=== PATIENT | male | born 1970 | race Caucasian/White ===

== ENCOUNTER 2017-10-09 17:22 | Emergency (ER) | payer MEDICAID, SELFPAY ==
[2017-10-09 17:22] VITALS: BP 154/100; PULSE 100; RESP 16; TEMP 36.6; O2SAT 100; BMI 31.3
--- NOTE | 2017-10-09 17:38 | EKG12_ITS ---
Test Reason : [facility] [place] Pressure : / mmHG Vent. Rate : 075 BPM Atrial Rate : 075 BPM P-R Int : 144 ms QRS Dur : 098 ms QT Int : 362 ms P-R-T Axes : 057 079 062 degrees QTc Int : 404 ms Normal sinus rhythm with sinus arrhythmia Normal ECG Confirmed by NELL MOSLEY, QUEENIE ([id number]), web editor CIERRA WU ([id number] on 10/11/2017 10:48:25 AM Referred By: Confirmed By:QUEENIE CAMEJO MD
[2017-10-09 17:47] LABS: Absolute Lymphocyte Count 1.49 X10^3/ul (0.83-4.51); Absolute Neutrophil Count 5.9 X10^3/uL (2.0-7.7); Basophil# 0.03 X10^3/uL; Basophil% 0.4 % (0-1); Eosinophil# 0.15 X10^3/uL; Eosinophils% 1.8 % (0-5); Hematocrit 42.8 % (40-54); Hemoglobin 14.1 g/dl (13.0-16.5); Lymphocyte # 1.49 X10^3/ul (4.0); Lymphocyte % 18.3 % (19-41); Mean Corp Hgb Conc 32.9 g/gl (32-36); Mean Corpuscular Hgb 31.8 pg (27.0-32.0); Mean Corpuscular Volume 96.6 fL (80-94); Mean Platelet Vol. 10.3 fl (6.2-12.0); Monocyte# 0.58 X10^3/uL; Monocyte% 7.1 % (0-10); Neutrophil # 5.86 X10^3/uL (2.7-7.7); Neutrophil % 72.2 % (47-70); Platelet Count 224 K/mm3 (150-450); RBC Distribution Width CV 13.6 % (11.6-14.6); RBC Distribution Width SD 48.4 fl (35.1-43.9); Red Blood Count 4.43 M/mm3 (4.6-6.2); White Blood Count 8.1 K/mm3 (4.4-11.0)
[2017-10-09 17:48] LABS: POSITIVE COUNT NO; POSITIVE DIFFERENTIAL NO; POSITIVE MORPHOLOGY NO
[2017-10-09 18:01] LABS: Bacteria 0 SEEN /hpf (None Seen); Mucous, Urine 0 SEEN /hpf (<or=2+); Red Blood Cells-Urine 0 SEEN /hpf (0-5); Squamous Epithelial Cells - UA 0 SEEN /hpf (0-5); White Blood Cells 0 SEEN /hpf (0-5)
[2017-10-09 18:04] LABS: Color, Urine Yellow (Yellow); Glucose, Dipstick Normal (Normal); Ketone-Dipstick Negative (Negative); Leukocyte Esterase-Dipstick 25 /ul (Negative); Nitrite-Dipstick Negative (Negative); Occult Blood-Urine Negative /ul (Negative); Protein-Dipstick Negative (Negative); Urine Bilirubin Dipstick Negative (Negative); Urine Clarity Clear (Clear); Urine Urobilinogen Normal (Normal); Urine pH 6.5 (5.0 - 8.0)
[2017-10-09 18:08] LABS: Alcohol, Blood (Medical)-Serum < 3.0 mg/dL
[2017-10-09 18:16] LABS: AST(SGOT) 22 U/L (15-37); Alanine Aminotransfer ALT/SGPT 49 U/L (16-61); Albumin, Serum 4.3 g/dL (3.2-5.0); Alkaline Phosphatase 100 U/L (45-117); Anion Gap 7 (5-15); BUN 12 mg/dL (7-18); BUN/Creat Ratio 12.5 RATIO (10-20); Bilirubin, Direct 0.13 mg/dL (0.00-0.30); Calcium,Total 9.2 mg/dL (8.5-10.1); Chloride 105 mmol/L (98-107); Creatinine, Serum 0.96 mg/dL (0.70-1.30); EST Glomerular Filtration Rate 90 mL/min (>60); Est Glom Filt Rate - Afr Amer 109 mL/min (>60); Estimated Creatinine Clearance 90.85 ml/min; Globulin 3.5 g/dL (2.2-4.2); Glucose 100 mg/dL (70-110); Potassium 4.1 mmol/L (3.5-5.1); Protein, Total 7.8 g/dL (6.4-8.2); Sodium Level 141 mmol/L (136-145)
[2017-10-09 18:27] LABS: Amphetamine Urine VISTA NEGATIVE (<1000 ng/mL); Barbiturate Urine VISTA NEGATIVE (< 200 ng/mL); Benzodiazepine Urine VISTA NEGATIVE (< 200 ng/mL); Cocaine Urine VISTA NEGATIVE (< 300 ng/mL); Ecstacy Urine VISTA NEGATIVE (< 500 ng/mL); Methadone Urine VISTA NEGATIVE (< 300 ng/mL); PCP Urine VISTA NEGATIVE (< 25 ng/mL); THC Urine VISTA NEGATIVE (< 50 ng/mL); Vista UDS pH Range 6
--- NOTE | 2017-10-09 18:59 | ED.RN ---
BELONGINGS: 2 ANN RUIZ RINGS, AVINASH SILVER NECKLACE, SWEATPANTS, SWEATSHIRT, SOCKS, SLIPPERS. PT CURRENTLY HAS CELL PHONE AND GLASSES AT BEDSIDE.
--- NOTE | 2017-10-09 19:01 | ED.RN ---
RT ARM LACERATIONS FROM RAZOR BLADES.
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
[2017-10-09 20:00] VITALS: RESP 18
[2017-10-09 21:59] VITALS: RESP 18
[2017-10-09 22:39] VITALS: BP 125/83; RESP 18
--- NOTE | 2017-10-09 22:39 | ED.DEP ---
ED Disposition - Plan for ED Patient: Chief Complaint: Suicidal Instructions: ED Depression Referrals: Care Physician,No Primary [Primary Care Provider] - Counseling,Center [GROUP OF PHYSICIANS] -
[2017-10-09 22:49] VITALS: BP 137/88; PULSE 87; RESP 16; O2SAT 99
== END 2017-10-09 22:52 | disposition home or self-care (01) ==
PROVIDERS: Emergency Provider Emergency Medicine
DX: R45.851 Suicidal ideations (principal); F41.9 Anxiety disorder, unspecified; F32.9 Major depressive disorder, single episode, unspecified; S60.811A Abrasion of right wrist, initial encounter; Z72.0 Tobacco use; Z79.899 Other long term (current) drug therapy; X78.9XXA Intentional self-harm by unspecified sharp object, initial encounter; Y93.89 Activity, other specified; Y92.89 Other specified places as the place of occurrence of the external cause; Y99.8 Other external cause status
CPT/HCPCS: 80048; 80076; 80307; 80320; 81001; 85025; 93005; 99283; G0480

== ENCOUNTER 2018-01-11 09:00 | Outpatient (RCR) | payer MEDICAID, SELFPAY ==
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
--- NOTE | 2018-01-11 12:41 | BH.COMM ---
Communication Note - Communication with Client Communication Note: Met with patient to update previous intake assessment which was completed on 11/15/17 and to complete admission paperwork for IOP. Was discharged from [facility] yesterday. Met with outpatient therapist this AM. Denies active suicidal ideations, plan, or intent. Contracts for safety. Reports that distress is related mainly to anxiety, however is motivated to start IOP program. Refer to intake for more information.
--- NOTE | 2018-01-11 12:45 | BH.COMM_ITS ---
Communication Note - Communication with Client Communication Note: Met with patient to update previous intake assessment which was completed on 11/15/17 and to complete admission paperwork for IOP. Was discharged from [facility] yesterday. Met with outpatient therapist this AM. Denies active suicidal ideations, plan, or intent. Contracts for safety. Reports that distress is related mainly to anxiety, however is motivated to start IOP program. Refer to intake for more information.
--- NOTE | 2018-01-11 12:45 | BH.COMM ---
Communication Note - Communication with Client Communication Note: Pt left 2nd group early due to anxiety. States that he was not able to fill his prescriptions for anxiety medications after discharge from hospital yesterday or this AM and feels his anxiety is increasing. Requested to leave IOP early. Denies any overwhelming depressive symptoms and reports that he plans on returning tomorrow.
--- NOTE | 2018-01-11 13:44 | BH.SGPN ---
Service Group Progress Note - Session Psychotherapy Session #2 Date Open:: 01/11/18 - 6 group members Time Started:: 10:18 Time Stopped:: 11:08 Targeted Problem #:: 1 Type of Group:: Illness Management Goal of Group:: To increase understanding of pitfalls and impact can have on mental health. Client Response/Progress/Benefit:: Client responded well to session, first day at IOP. Client appeared to connect with the quote sharing, sometimes the right path means cutting out people from your life. Client discussed the definition of pitfalls with the group and identified pitfalls as hardships, unexpected challenges, and difficulties. Client stated anxiety, PTSD, and negative thinking can make one vulnerable to pitfalls. Client shared pitfalls can negatively impact mental health by increasing self-doubt, depression, and negative thinking. Client appeared to benefit from increasing awareness of the impact pitfalls can have on mental health. Client left in a hurry, due to medication needs. Client to continue IOP to prevent decompensation. Eye Contact:: Good Motor Activity:: Restless Appearance:: Casual Speech:: Appropriate Mood:: Anxious, Dysthymic Affect:: Flat Thoughts:: Linear, No evidence of hallucinations/delusions noted Staff Interventions:: Therapist facilitated discussion about pitfalls and assisted group in identifying common pitfalls that can set you back. Therapist led group in an activity to help group understand impact pitfalls can have on oneself and identify strategies that could help you get back on the right path. Therapist provided support by using active listening and providing feedback.
--- NOTE | 2018-01-13 09:43 | BH.SGPN_ITS ---
Service Group Progress Note - Session Psychotherapy Session #1 Date Open:: 01/12/18 Time Started:: 09:10 Time Stopped:: 10:00 Type of Group:: Process - 6 group members Goal of Group:: The goal of today's group was to check-in with client's mood, stressors, and positives, and review homework. Client Response/Progress/Benefit:: Pt was an active participant in group discussion. Provided appropriate feedback to peers. Emotions for today is anxious. Apologized to the group for leaving IOP early yesterday due to anxiety/panic. Shared that he has been overwhelmed with anxiety and depressive symptoms which resulted in a suicide attempt and ultimately placement in psychiatric unit. Discussed his admission and the events that led to his admission. Group was supportive. Benefited from group support. Limited progress as this is pt's second day in IOP. Will continue in IOP to maintain safety, stabilize mood, and prevent further decompensation. Eye Contact:: Intense Motor Activity:: Restless Appearance:: Casual Speech:: Appropriate Mood:: Anxious, Irritable, Depressed Affect:: Congruent Thoughts:: Linear, Logical, No evidence of hallucinations/delusions noted Staff Interventions:: Therapist used open-ended questions to elicit information about client's current stressors and mood state. Therapist was supportive by using active listening and reflection. Psychotherapy Session #2 Date Open:: 01/12/18 Time Started:: 10:20 Time Stopped:: 11:10 Type of Group:: Process - 6 group members Goal of Group:: To increase understanding and awareness of emotions connected to change and the impact those emotions can have on change. Client Response/Progress/Benefit:: Pt was an active participant in group activity and dicussion. Along with others in the group pt participated in discussion on change and the emotions associated with change. Pt stated I don' t like like change ... I like to avoid it. Reported common emotions for him related to change which involve fear, anger, and anxiety. Benefited from group to increase awareness that the emotions that he experiences are common to change. Also benefited on reframing of change as negative to positive. Eye Contact:: Fair Motor Activity:: Restless Appearance:: Casual Speech:: Appropriate Mood:: Anxious, Depressed Affect:: Congruent Thoughts:: Linear, Logical, No evidence of hallucinations/delusions noted Staff Interventions:: Therapist facilitated group discussion about change. Therapist led the group in an activity in which the activity was utilized as a tool to increase client?s awareness of emotions connected with change. Therapist led the processing of how each emotion was associated with change. Therapist also educated clients on the stages of change and discussed emotions associated with each stage. Therapist was supportive by providing feedback and using reflective listening.
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
--- NOTE | 2018-01-13 10:00 | BH.NET ---
Nursing Education/Training - Session Information Type of Session: Individual Medical Management:: Client's R wrist wound examined: appears edematous around the incision site with significant errythema and some minor purulent drainage. The stitches have been removed. The ends of the wound are well-approximated, but the middle is poorly approximated and deep. Client did see a physician in a urgent care the day before and he was given 2 antibiotics. There are no systemic symptoms, no obvious cellulits, no tracts of redness or edema, and he is afebrile. Client provided with several packs of steri-strips and advised to clean the wound only with gentle soap and luke-warm water, to avoid lifting with the affected limb, to keep steri-strips to the center, and to seek emergency medical attention if systemic symptoms develop, drainage increases, there is significant bleeding, or redness increases. Client verbalizes understanding.
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
--- NOTE | 2018-01-13 14:39 | BH.DR.ITP ---
Initial Treatment Plan - Patient Information Visit Information: ADMISSION DATE: EXPECTED LOS: 4-6 weeks Diagnoses:: Major depressive disorder recurrent severe F 33.2 - Problems/Symptoms Problem #1:: Depression. Sad mood, anhedonia, recent suicide attempt Problem #2:: Anxiety Symptom:: Minasian, panic, intrusive traumatic thoughts, hypervigilance, nightmares, obsessive-compulsive traits Problem #3:: Substance use
--- NOTE | 2018-01-13 15:22 | BH.MDN_ITS ---
Multi-Disciplinary Note - Note 30-min Individual Time Started:: 11:30 Date: 01/13/18 Purpose of session/treatment goals addressed:: Purpose of today's session was to gather additional information from the client about functioning and symptoms. Other topics including developing treatment goals and his progress in the program Eye Contact:: Fair Motor Activity:: Restless Appearance:: Casual Speech:: Appropriate Mood:: Anxious, Irritable Affect:: Congruent Thoughts:: Linear, Logical, No evidence of hallucinations/delusions noted Staff Interventions:: therapist used open ended questions to gather client's symptoms, current stressors, as well as hx of mental health treatment. Worked with client to explore treatment goals to address in IOP Client Response:: Client reports that he is begining to feel more comfortable in the group setting. Reports less anxiety from first day where he had to leave early due to panic. He discussed at length his conflicted relationship with his father and his son. During recent inpatient hospitalization he had intense conversations with his son and father. Hopeful that those relationships will improve. Significant regret for his actions while addicted to substances for 20 years and how it effected those close to him. Pt reports that he would like to work on managing his depressive, anxiety, and irritability more effectively. States the he need to learn how to cope with life better. Currently is on parole for 3 years after his release from penitentiary. Had a PV 4 months ago related to consuming alcohol. Pt adamantly denies dependence on alcohol. Reports that an alcohol monitor will be placed on him next week. Risks/Concerns:: No risks or concerns noted. Pt denies any active suicidal ideations, plan, or intent. Contracts for safety. Progress Toward Goals/Plan:: Progress noted since starting IOP as he reports decreased anxiety, fear, and depression. Pt also reports increased support from group program and decreased anxiety as due to resolution of legal issues and job status. Plan is to continue in IOP to maintain safety, prevent decompensation, and decrease depressive symptoms. Time Stopped:: 12:05
--- NOTE | 2018-01-18 13:55 | BH.MDN ---
Multi-Disciplinary Note - Note 30-min Individual Time Started:: 09:35 Date: 01/18/18 Purpose of session/treatment goals addressed:: The purpose of this session was to begin building rapport with Client as well as gather additional information regarding current symptoms, stressors, and means for coping. Another purpose was to identify healthy supports and complete treatment goal planning. Eye Contact:: Good Motor Activity:: Appropriate Appearance:: Casual Speech:: Appropriate Mood:: Anxious, Irritable Affect:: Congruent Thoughts:: Linear, Logical, No evidence of hallucinations/delusions noted Staff Interventions:: Therapist asked open-ended and clarifying questions to gather information regarding client current symptoms, stressors, identified supports, and current means for coping. Used reflective listening and empathic responses as Client discussed current psychosocial stressors and circumstances leading to admission. Used motivational-interviewing techniques to begin identifying Client motivations to change, potential barriers, and goals for treatment. Client Response:: Client responded well to session and remained engaged throughout discussion. She openly shared current thoughts, feelings, symptoms, and concerns. CLient indicated his main area of concern is in developing new and healthy means for managing stress. Client went on to explain that he has been experiencing difficulties in adjusting and coping since he was released from care home in February of 2016 after serving 6 years behind bars. Client appears to have fair levels of insight asto how his experience of being incarcerated has impacted his mental health and daily functioning. Client discussed experiencing hypervigilance and noted it's like I'm always on the lookout. He appeared to connect well with the discussion reviewing the concept of fight, flight, or freeze as a stress response. Client shared I never heard of the 'freeze' one before but that really makes a lot of sense. Client shared having moments in his daily life where he finds himself in the freeze response mode, specifically when in environments with a high volume of people. Client discussed typically becoming agitated in these moments. 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 CLient appears to be motivated to learn more regarding his mental health symptoms and strategies for managing and improving symptoms. He discussed the events leading to admission to IOP program and was able to identify placing himself in environment that was not condusive to succeeding. Client discussed that eh had used alcohol and drugs to cope with stress in the past but is now sober and would like to replace those unhealthy habits with alternative means for coping. CLient noted that he is currently attending AA/NA meetings twice a [place] in [place] and finds coloring to be benefical. He shared beliefs that his main supports include his girlfriend, adult son, and current providers. Client indicates his girlfriend is also struggling with recovery from drug addiction but that he has been able to set and enforce healthy boundaries in order to maintain sobriety from drugs since July 15 and alcohol since January 03. Risks/Concerns:: No current risks or concerns. Client denies any active suicidal ideation, plan, or intent and expresses regret regarding his previous attempt. He is future oriented indicating plans to go to work following today's group and identifies his girlfriend and son as biggest protective factors. Progress Toward Goals/Plan:: progress made. Client is able to remain in group for duration of the session without panic or overwhelming anxiety. He is gaining in insight related to his mental health and appears to be making small strides towards increasing levels of distress tolerace. Client continues to maintain sobriety since admission, denies SI, maintains safety, and expresses high levels of motivation. Current plan is to begin working with Client on increasing understanding of trauma and stress response in order to increase emotion regulation, decrease crisis escalation, and better imrove ability to utilize health coping skills.
--- NOTE | 2018-01-18 14:34 | BH.MDN_ITS ---
Multi-Disciplinary Note - Note 30-min Individual Time Started:: 09:35 Date: 01/18/18 Purpose of session/treatment goals addressed:: The purpose of this session was to begin building rapport with Client as well as gather additional information regarding current symptoms, stressors, and means for coping. Another purpose was to identify healthy supports and complete treatment goal planning. Eye Contact:: Good Motor Activity:: Appropriate Appearance:: Casual Speech:: Appropriate Mood:: Anxious, Irritable Affect:: Congruent Thoughts:: Linear, Logical, No evidence of hallucinations/delusions noted Staff Interventions:: Therapist asked open-ended and clarifying questions to gather information regarding client current symptoms, stressors, identified supports, and current means for coping. Used reflective listening and empathic responses as Client discussed current psychosocial stressors and circumstances leading to admission. Used motivational-interviewing techniques to begin identifying Client motivations to change, potential barriers, and goals for treatment. Client Response:: Client responded well to session and remained engaged throughout discussion. She openly shared current thoughts, feelings, symptoms, and concerns. CLient indicated his main area of concern is in developing new and healthy means for managing stress. Client went on to explain that he has been experiencing difficulties in adjusting and coping since he was released from long-term in February of 2016 after serving 6 years behind bars. Client appears to have fair levels of insight asto how his experience of being incarcerated has impacted his mental health and daily functioning. Client discussed experiencing hypervigilance and noted it's like I'm always on the lookout. He appeared to connect well with the discussion reviewing the concept of fight, flight, or freeze as a stress response. Client shared I never heard of the ' freeze' one before but that really makes a lot of sense. Client shared having moments in his daily life where he finds himself in the freeze response mode, specifically when in environments with a high volume of people. Client discussed typically becoming agitated in these moments. 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 CLient appears to be motivated to learn more regarding his mental health symptoms and strategies for managing and improving symptoms. He discussed the events leading to admission to IOP program and was able to identify placing himself in environment that was not condusive to succeeding. Client discussed that eh had used alcohol and drugs to cope with stress in the past but is now sober and would like to replace those unhealthy habits with alternative means for coping. CLient noted that he is currently attending AA/NA meetings twice a week in [place] and finds coloring to be benefical. He shared beliefs that his main supports include his girlfriend, adult son, and current providers. Client indicates his girlfriend is also struggling with recovery from drug addiction but that he has been able to set and enforce healthy boundaries in order to maintain sobriety from drugs since July 15 and alcohol since January 03. Risks/Concerns:: No current risks or concerns. Client denies any active suicidal ideation, plan, or intent and expresses regret regarding his previous attempt. He is future oriented indicating plans to go to work following today's group and identifies his girlfriend and son as biggest protective factors. Progress Toward Goals/Plan:: progress made. Client is able to remain in group for duration of the session without panic or overwhelming anxiety. He is gaining in insight related to his mental health and appears to be making small strides towards increasing levels of distress tolerace. Client continues to maintain sobriety since admission, denies SI, maintains safety, and expresses high levels of motivation. Current plan is to begin working with Client on increasing understanding of trauma and stress response in order to increase emotion regulation, decrease crisis escalation, and better imrove ability to utilize health coping skills.
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
--- NOTE | 2018-01-20 12:33 | BH.SGPN ---
Service Group Progress Note - Session Psychotherapy Session #1 Date Open:: 01/20/18 Time Started:: 09:10 Time Stopped:: 10:00 Type of Group:: Process - 6 group members Goal of Group:: The goal of today's group was to check-in with client's mood, stressors, and positives, and review homework. Client Response/Progress/Benefit:: Active participant in group discussion. Shared with the group that he used good decision-making and coping skills while in an argument with his GF recently. Stated that during arguement he choose to walk away and using coloring book to calm and distract rather than engage in arguement with GF. States that this time allowed for both him and GF to calm. Group praised him for his efforts. Pt admits that he also continues to struggle with his anger and fuck it attitude when he feels wronged. Recently his founder chairman and chief creative officer denied his request to go to [facility] with her GF. This upset pt and reported that he almost gave up and Went and got high and drunk, however he did not. He however continues to ruminate on probation restrictions and feels as if they are not fair. Group provided support and feedback which he benefited from. Some progress noted as he was able to use skills to manange emotions on one occasion however continues to struggle on daily basis with emotional regulation. Will continue in IOP to maintain safety, prevent decompensation, and stablize mood. Eye Contact:: Intense Motor Activity:: Appropriate Appearance:: Casual Speech:: Appropriate Mood:: Irritable, Depressed Affect:: Congruent Thoughts:: Linear, Logical, No evidence of hallucinations/delusions noted Staff Interventions:: Therapist used open-ended questions to elicit information about client's current stressors and mood state. Therapist was supportive by using active listening and reflection.
--- NOTE | 2018-01-20 14:34 | BH.SGPN_ITS ---
Service Group Progress Note - Session Psychotherapy Session #2 Date Open:: 01/20/18 - 7 group members Time Started:: 10:10 Time Stopped:: 11:15 Targeted Problem #:: 1 Type of Group:: Illness Management Goal of Group:: To increase understanding of what conflict is and increase awareness of how group members manage conflict. Client Response/Progress/Benefit:: Client responded well to session, active participant. Client appeared to connect with the quote, sharing ?you can?t stop bad things from happening, so you have to accept it.? Client reported one can have internal and external conflict. 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 Client identified his conflict resolution style as ?competing? sharing through his life experience he has learned not to trust others and becomes easily aggressive. Client shared being aggressive keeps him safe and ?keeps people out of my personal space.? Client recognizes he is also aggressive with dealing with internal conflict, which leads to negative thinking and depression. Client appeared to benefit from increasing awareness of his personal conflict resolution style. Client seems to be progressing with identifying warning signs and utilizing radical acceptance, but can continue to benefit from increased emotional regulation. Eye Contact:: Good Motor Activity:: Appropriate Appearance:: Neat Speech:: Appropriate Mood:: Irritable Affect:: Constricted Thoughts:: Linear, No evidence of hallucinations/delusions noted Staff Interventions:: Therapist facilitated discussion about conflict and conflict resolution. Therapist led group in an activity in which group members had to identify their initial response to conflict and how their response changes based on different situations. Therapist assisted clients with connecting the impact current conflict style has on their mental health.
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
[2018-01-27 12:23] VITALS: BP 124/71; PULSE 104; RESP 16; TEMP 36.5
--- NOTE | 2018-01-27 15:39 | BH.SGPN ---
Service Group Progress Note - Session Psychotherapy Session #2 Date Open:: 01/27/18 Time Started:: 10:20 Time Stopped:: 11:15 Targeted Problem #:: 1 Type of Group:: Illness Management Goal of Group:: To increase understanding of what strengths are and identify individual strengths. Client Response/Progress/Benefit:: Pt contributed to discussion and listened attentively to others. Pt shared he doesn't have too difficult a time identifying his strengths. Stated that when he isn't perfect on something or fails at a goal then he will beat himself up over it. Pt shared that he recognizes it's important to identify his strengths, but a barrier to not doing it is feeling stupid. Pt shared he feels stupid by saying his strengths and positive qualities to himself. Pt seemed to benefit from identifying his strengths as well as understanding the benefits of using and recognizing one's individual strengths. Eye Contact:: Good Motor Activity:: Appropriate Appearance:: Casual Speech:: Appropriate Mood:: Anxious, Depressed Affect:: Congruent Thoughts:: Linear, Logical, No evidence of hallucinations/delusions noted Staff Interventions:: Therapist facilitated discussion about what are strengths and assisted group members in identifying examples of strengths. Therapist led an activity in which group members were given the opportunity to identify five personal strengths. Therapist assisted clients in connecting the importance of recognizing personal strengths.
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
--- NOTE | 2018-02-01 14:27 | BH.SGPN_ITS ---
Service Group Progress Note - Session Psychotherapy Session #3 Date Open:: 02/01/18 - 6 group members Time Started:: 11:15 Time Stopped:: 12:15 Targeted Problem #:: 1 Type of Group:: Functional Skills Development Goal of Group:: Goal was to increase client?s self-awareness on their use of coping strategies and increase repertoire of healthy coping strategies. Client Response/Progress/Benefit:: Client responded well to session, active participant. Client reported he often relies on his internal coping skills which lasts for a while, but client struggles on his bad days as he does not have many positive supports. Client stated having a variety of coping skills is important because you can't just constantly distract one needs to get emotions out. Client shared in the past he has used unhealthy coping skills, but he is trying to replace those with healthy skills such as music, splitting wood, and art. Client shared he wants to improve his thought challenging strategies and plans to incorporate best case, worst case, most realistic to help combat negative thoughts. Client appeared to benefit from improving his awareness of the coping skills he uses as well as increasing his coping skill repertoire. Progress noted in client's improved mood, but can continue to increase emotional regulation skills. Eye Contact:: Good Motor Activity:: Appropriate Appearance:: Casual Speech:: Appropriate Mood:: Euthymic Affect:: Congruent Thoughts:: Linear, No evidence of hallucinations/delusions noted Staff Interventions:: Therapist facilitated discussion about the different types of coping skills. Therapist led group in an activity in which group members were asked to brainstorm coping strategies that fit in each coping skill category. Therapist reviewed each coping strategy with the group and led a discussion about whether the coping strategies identified were healthy or unhealthy. Therapist provided homework in which group members creating a coping skills menu and would practice two skills a day.
--- NOTE | 2018-02-01 15:04 | BH.MDN ---
Multi-Disciplinary Note - Note 45-min Individual Time Started:: 10:14 Date: 02/01/18 Purpose of session/treatment goals addressed:: The purpose of this session was to assess client's current treatment goal progress and use of healthy emotion regulation skills. Another purpose was to discuss with CLient relapse prevention and addressing self-sabotage behaviors. Eye Contact:: Good Motor Activity:: Restless Appearance:: Casual Speech:: Appropriate Mood:: Euthymic, Anxious Affect:: Congruent Thoughts:: Linear, Logical, No evidence of hallucinations/delusions noted Staff Interventions:: Therapist used active listening and emotional validation as client expressed ongoing biopsychosocial stressors. Therapist helped client identify strategies for managing anxiety, preventing maintenance of unhealthy coping, and what is in client's control. Therapist provided psychoeducation regarding self-sabotage and aided client in identifying warning signs and skills to prevent engaging in sabotage behaviors. Client Response:: Client responded well to session and was able to remain engaged throughout. He reports doing alright over the past week as having a consistent routine has aided in decreasing some of Client's depression as he is feeling more productive. He discussed being glad that he had spent some time on his bike and stopped by the [employer] over the weekend. CLient went on to share ongoing frustrations with a lack of consistent work hours as Client is currently only obtaining ~12hrs/week. Client discussed that this is most stressful as it continues to make finances tight. When asked about budgeting, Client responded I don't spend money on anything because probation doesn't let me do anything. Client continues to struggle with resentment related to consequences of his legal issues; however, did well to process with this therapist why his global chief experience officer may have given client additional restrictions. CLient identified that his previous pattern of behaviors may have suggested that client is continuing to drink while on probation, resulting in the alcohol monitor. CLient indicates believing he would have made the same decision had he been in the P.O. role. CLient is doing well to utilize behavior chain analysis concepts in reviewing his own behaviors. Client reflected that historically he falls back into using negative coping and unhealthy behaviors when experiencing increased stressors. Client indicated I am my own worst enemy, I self-sabotage. CLient struggled to identify what barriers may result in the desire to engage in self-sabotaging or unhealthy behaviors at present; however, was able to identify motivations not to fall back into toxic patterns. CLient indicates his girlfriend and establishing a positive relationship with his grandchildren are his major driving forces to continue making progress in his own life. CLient expressed a willingness to think of specific goals he has for himself as he transitions into a more healthy and consistent lifestyle in order to further examine the potential steps client may begin working on to accomplish those goals and continue to prevent relapse of unhelpful behaviors and poor decision making. Risks/Concerns:: Client continue to report unhappiness with living; however expresses I don't really want to . He denies suicidal ideation, plan, and intent as of 02/01/18. Client future oriented and reports his grandchildren and girlfriend are main motivations to live. Progress Toward Goals/Plan:: Client is making some progress towards treatment goals since beginning IOP program. 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 Client continues to endorse high levels of anxiety and discomfort associated with multiple psychosocial stressors and times in which he has to be around large groups of people for prolonged periods of time. CLient is noting he has observed differences in ability to regulate emotions as client has not experienced anger related emotional outbursts. CLient continues to struggle with distorted thinking patterns and inconsistent use of healthy means of coping. He is to continue IOP to prevent decompensation, continue addressing negative thought patterns, increase mood stability, and promote use of healthy coping skills. Time Stopped:: 10:54
--- NOTE | 2018-02-03 10:42 | BH.SGPN ---
Service Group Progress Note - Session Psychotherapy Session #1 Date Open:: 18 - 8 group members Time Started:: 09:05 Time Stopped:: 10:10 Targeted Problem #:: 1 Type of Group:: Process Goal of Group:: The goal of today's group was to check-in with clients and review homework from previous group session. Client Response/Progress/Benefit:: Client responded well to session, engaging in side conversations at times, but overall using active listening skills. Client reports feeling nervous and excited today as he is going to [facility] with his grandchildren and girlfriend over the weekend. Client shared it should be fun, but I'm worried about all the energy the kids have. Client processed various strategies to help manage his stress and help the grandchildren release energy. Client reported he is glad to be going as he thought his probation conditions would prevent him from going, but his girlfriend's family made accommodations so client could still come. Client appeared to benefit from identifying strategies to manage stress over the weekend. Progress noted in client's improved mood, but can continue to benefit from increasing his emotional regulation skills. Eye Contact:: Good Motor Activity:: Restless Appearance:: Casual Speech:: Appropriate Mood:: Anxious Affect:: Full Thoughts:: Linear, No evidence of hallucinations/delusions noted Staff Interventions:: Therapist inquired about each group member?s previous night and current mood state. Therapist reviewed the group member?s homework from previous group session with the group, asking open ended questions to get more information.
--- NOTE | 2018-02-03 14:25 | BH.NOTE ---
BH: Inpatient Note - Notes Behavioral Health Inpatient Note: Per V.O. from Dr. Yañez, this RN called in the following to [facility] in [place], [place]: fluoxetine 20mg PO daily #30 with 1 refill doxepin 100mg PO QHS #30 with 1 refill AKUA LalN, RN
--- NOTE | 2018-02-08 10:19 | BH.MDN ---
Multi-Disciplinary Note - Note 45-min Individual Time Started:: 10:24 Date: 02/08/18 Purpose of session/treatment goals addressed:: The purpose of this session was to review with client his current treatment goal progress as well as utilization of healthy coping skills identified. Another purpose was to discuss strategies for client to continue to maintain gains and prevent returning to unhealthy mean of coping, as well as review emotion regulation and anger management skills. Eye Contact:: Good Motor Activity:: Appropriate Appearance:: Casual Speech:: Appropriate Mood:: Euthymic Affect:: Constricted Thoughts:: Linear, Logical, No evidence of hallucinations/delusions noted Staff Interventions:: Therapist asked open ended and furthering questions to elicit information regarding client current symptoms and effective use of stress management strategies. Provided supportive feedback and empathic responses as client discussed current stressors and areas of frustration and commended client progress made. Provided psychoeducation regarding the change process and developing new habits.reviewed emotion regulation and stress management skills. Client Response:: Client agree to meet with this therapist and discussed having had a positive experience with his girlfriend and her family at the [place]. Client shared that being able to spend time with his grandchildren and not have to worry about anything else had been a nice break from the stressors of the past year. Client shared that his family is the main motivation for his continued progress in managing his mental health symptoms as well as keeps him from returning to the unhealthy behaviors he had previously relied on, such as using illicit drugs. Client discussed a momentary increase in anxiety following his weekend at the [place] and went on to explain that he had limited access to WiFi while out of town which had prevented him from receiving messages from his PO or getting the alerts to take his alcohol test. Client indicated that he had attempted to resolve the issue by periodically sending updates and test results to his PO which did not appear to be a problem at the time. However, upon return home client had been told by the director of physical security at the probation department that he had a warrant for his arrest. Client expressed becoming increasingly anxious about this and then grew angry when he had discovered that the guard had mistaken him for someone else. Client discussed practicing taking time to breathe before reacting and was able to keep from verbally lashing out by reminding himself of where he was and what the potential consequences might be. Client expressed that he finds himself continuing to struggle with application of some of the stress management skills in the moment but remembers afterwards. He responded will to the conversation reviewing what all may be involved in breaking old habits as our brain has to train itself to learn and consistently apply new patterns of behavior. Client able to identify the skills he had been successfully using such as drawing or walking away from a situation when needed. Client discussed ongoing frustration with the limited number of hours he has been getting at his current job. Client noted wanting to eventually go back to school to receive training in a field that may be more stable and will allow for him to use his creativity. He expressed that he has recently been looking into cosmetology as he had seen how much his girlfriend enjoys it. Client expressed plans to shadow the mail tech at his girlfriends salon in order to determine whether or not he really wants to pursue the idea any further. Risks/Concerns:: No risk or concerns at this time. Client denies active suicidal ideation, plain, or intent as of 02/08/18 and expresses ability to maintain safety. Client is aware of the crisis resources available and willing to use these should he no longer feel able to maintain safety. Client continues to indicate maintaining sobriety since admitting to IOP program and denies active urges to relapse. Client continues to be encouraged to attend AA meetings or reach out to his sponsor for ongoing support. Progress Toward Goals/Plan:: Client continues to express an overall decrease in symptoms of depression and anxiety since admitting to the program and indicates no longer experiencing thoughts of . Client attributes this to reframing his perspective and challenging himself to practice radical acceptance as well as identify the positives in his life. Client continues to provide positive feedback and remains an active contributor to the group. At times he appears to minimize ongoing struggles with emotion regulation as client denies difficulties with managing symptoms of anger how ever had expressed and displayed emotional disregulation via verbal outburst. Client additionally appears to minimize symptoms of anxiety and irritability, he is recommended continued IOP to improve use of stress management skills as well as continue to work on thought challenging strategies for addressing client use of distorted thinking patterns. Time Stopped:: 11:13
--- NOTE | 2018-02-08 14:31 | BH.SGPN ---
Service Group Progress Note - Session Psychotherapy Session #3 Date Open:: 18 - 9 group members Time Started:: 11:25 Time Stopped:: 12:15 Targeted Problem #:: 1 Type of Group:: Functional Skills Development Goal of Group:: To rehearse resilient factors and identify ways to maintain resilience despite hardships and stressors. Client Response/Progress/Benefit:: Client responded well to session, active participant. Client participated in an activity aimed to help clients rehearse resilient factors. Client shared being resilient means being open to others' ideas and thinking of ways to grow and change. Client wrote down reminders of ways to maintain resilience despite hardships in his life. Client reported I can survive through anything, I have made it through a lot of shit. Client reported he wants to improve his self-awareness and communication with supports to further increase his resilience. Client appeared to benefit from recognizing personal traits that make client resilient. Progress noted in client's improved mood and outlook, but can continue to benefit from emotional regulation and impulse control. Eye Contact:: Good Motor Activity:: Appropriate Appearance:: Neat Speech:: Appropriate Mood:: Euthymic Affect:: Constricted Thoughts:: Linear, Logical, No evidence of hallucinations/delusions noted Staff Interventions:: Therapist led group in an activity in which group members were challenged to stay resilient despite various stressors and hardships added to activity. Therapist provided each group member with a stress ball and used stress ball as a tool to discuss factors of resilient personality. Therapist provided group members with a handout about the building blocks of resilience. Therapist provided support by using reflective listening.
--- NOTE | 2018-02-08 15:04 | BH.SGPN ---
Service Group Progress Note - Session Psychotherapy Session #1 Date Open:: 02/08/18 Time Started:: 09:10 Time Stopped:: 10:10 Targeted Problem #:: 1 Type of Group:: Process - 10 group members Goal of Group:: The goal of today's group was to check-in with client's mood, stressors, and positives, review homework and introduce topic for the day. Client Response/Progress/Benefit:: Client reported he went to [facility] with his grandchildren and family. Client shared he had a really fun time and his grandchildren did much better than he had expected. Reported he got to [employer] for the first time ever which he shared was a blast. Client shared he is feeling content. Client demosntrating progress AEB client reporting decrease in symptomalogy and identifying feeling content with life. The concern is client could be minimizing symptoms given client was recently discharged from inpatient psychiatric for SA and quickly seems to be reporting he is doing good. Client to continue IOP level of care to maintain gains, demonstrate consistent stability, and prevent decompensation. Eye Contact:: Good Motor Activity:: Appropriate Appearance:: Casual Speech:: Appropriate Mood:: Euthymic Affect:: Congruent Thoughts:: Linear, Logical, No evidence of hallucinations/delusions noted Staff Interventions:: Therapist used open-ended questions to elicit information about client's current stressors and mood state. Therapist was supportive by using active listening and reflection.
--- NOTE | 2018-02-27 10:29 | BH.MDN_ITS ---
Multi-Disciplinary Note - Note 45-min Individual Time Started:: 10:24 Date: 02/08/18 Purpose of session/treatment goals addressed:: The purpose of this session was to review with client his current treatment goal progress as well as utilization of healthy coping skills identified. Another purpose was to discuss strategies for client to continue to maintain gains and prevent returning to unhealthy mean of coping, as well as review emotion regulation and anger management skills. Eye Contact:: Good Motor Activity:: Appropriate Appearance:: Casual Speech:: Appropriate Mood:: Euthymic Affect:: Constricted Thoughts:: Linear, Logical, No evidence of hallucinations/delusions noted Staff Interventions:: Therapist asked open ended and furthering questions to elicit information regarding client current symptoms and effective use of stress management strategies. Provided supportive feedback and empathic responses as client discussed current stressors and areas of frustration and commended client progress made. Provided psychoeducation regarding the change process and developing new habits.reviewed emotion regulation and stress management skills. Client Response:: Client agree to meet with this therapist and discussed having had a positive experience with his girlfriend and her family [place] the [place]. Client shared that being able to spend time with his grandchildren and not have to worry about anything else had been a nice break from the stressors of the past year. Client shared that his family is the main motivation for his continued progress in managing his mental health symptoms as well as keeps him from returning to the unhealthy behaviors he had previously relied on, such as using illicit drugs. Client discussed a momentary increase in anxiety following his weekend at the [place] and went on to explain that he had limited access to WiFi while out of town which had prevented him from receiving messages from his PO or getting the alerts to take his alcohol test. Client indicated that he had attempted to resolve the issue by periodically sending updates and test results to his PO which did not appear to be a problem at the time. However, upon return home client had been told by the java security engineer at the probation department that he had a warrant for his arrest. Client expressed becoming increasingly anxious about this and then grew angry when he had discovered that the guard had mistaken him for someone else. Client discussed practicing taking time to breathe before reacting and was able to keep from verbally lashing out by reminding himself of where he was and what the potential consequences might be. Client expressed that he finds himself continuing to struggle with application of some of the stress management skills in the moment but remembers afterwards. He responded will to the conversation reviewing what all may be involved in breaking old habits as our brain has to train itself to learn and consistently apply new patterns of behavior. Client able to identify the skills he had been successfully using such as drawing or walking away from a situation when needed. Client discussed ongoing frustration with the limited number of hours he has been getting at his current job. Client noted wanting to eventually go back to school to receive training in a field that may be more stable and will allow for him to use his creativity. He expressed that he has recently been looking into cosmetology as he had seen how much his girlfriend enjoys it. Client expressed plans to shadow the mail tech at his girlfriend?s salon in order to determine whether or not he really wants to pursue the idea any further. Risks/Concerns:: No risk or concerns at this time. Client denies active suicidal ideation, plain, or intent as of 02/08/18 and expresses ability to maintain safety. Client is aware of the crisis resources available and willing to use these should he no longer feel able to maintain safety. Client continues to indicate maintaining sobriety since admitting to IOP program and denies active urges to relapse. Client continues to be encouraged to attend AA meetings or reach out to his sponsor for ongoing support. Progress Toward Goals/Plan:: Client continues to express an overall decrease in symptoms of depression and anxiety since admitting to the program and indicates no longer experiencing thoughts of . Client attributes this to reframing his perspective and challenging himself to practice ?radical acceptance? as well as identify the positives in his life. Client continues to provide positive feedback and remains an active contributor to the group. At times he appears to minimize ongoing struggles with emotion regulation as client denies difficulties with managing symptoms of anger how ever had expressed and displayed emotional disregulation via verbal outburst. Client additionally appears to minimize symptoms of anxiety and irritability, he is recommended continued IOP to improve use of stress management skills as well as continue to work on thought challenging strategies for addressing client use of distorted thinking patterns. Time Stopped:: 11:13
--- NOTE | 2018-02-28 15:08 | BH.SGPN_ITS ---
Service Group Progress Note - Session Psychotherapy Session #1 Date Open:: 02/08/18 Time Started:: 09:10 Time Stopped:: 10:10 Targeted Problem #:: 1 Type of Group:: Process - 10 group members Goal of Group:: The goal of today's group was to check-in with client's mood, stressors, and positives, review homework and introduce topic for the day. Client Response/Progress/Benefit:: Client reported he went to [facility] with his grandchildren and family. Client shared he had a really fun time and his grandchildren did much better than he had expected. Reported he got to [employer] for the first time ever which he shared was a blast. Client shared he is feeling content. Client demosntrating progress AEB client reporting decrease in symptomalogy and identifying feeling content with life. The concern is client could be minimizing symptoms given client was recently discharged from inpatient psychiatric for SA and quickly seems to be reporting he is doing good. Client to continue IOP level of care to maintain gains, demonstrate consistent stability, and prevent decompensation. Eye Contact:: Good Motor Activity:: Appropriate Appearance:: Casual Speech:: Appropriate Mood:: Euthymic Affect:: Congruent Thoughts:: Linear, Logical, No evidence of hallucinations/delusions noted Staff Interventions:: Therapist used open-ended questions to elicit information about client's current stressors and mood state. Therapist was supportive by using active listening and reflection.
--- NOTE | 2018-03-14 11:05 | BH.MTP_ITS ---
Treatment Plan Review Date of Admission:: 01/11/18 Date of Treatment Plan Review:: 02/08/18 Admitting Diagnoses:: Major depressive disorder recurrent severe. PTSD. Amphetamine use disorder. Cocaine use disorder Current Diagnoses:: Major depressive disorder recurrent severe. PTSD. Amphetamine use disorder. Cocaine use disorder Patient's Response to Treatment:: Client has been attending scheduled group days , is willing to meet for individual sessions, and is an active participant in group. He has shown improved use of healthier means of coping and reports decreased depressive sx. Client continues to increase actively utilizing skills for emotion regulation and release he has learned in group, though would benefit from increased consistency of use. Overall, client has responded with receptivity to treatment interventions and has made progress in IOP. Status of Current Problems and Symptoms: Client has continued to report no suicidal ideation since beginning IOP program. He has done well to challenge negative and irrational thoughts which were contributing to anxiety and depressive symptoms. CLient indicates that utilizing concepts of DBT via radical acceptance, as well as implementing healthy skills and keeping in mind the consequences of unhealthy actions has aided most significantly in clients ability to manage mental health symptoms and improve overall daily functioning and mood. Although client reports utilizing thought challenging strategies learned in group he continues to struggle with observable emotion dysregulation during times of increased stress or unpredictability. Client most noteably continues to struggle with consistently of distress tolerance skills, though has been able to delay his reaction for longer periods of time. Would benefit from an additional week of IOP to continue with progress towards treatment plan goals, maintain gains, further improve distress tolerance and self-regulation, as well as display more consistency on skill utilization. Problem #1 Problem Name:: Client will reduce overall anxiety and improve emotion regulation Status of Goals:: Client has made progress in this areas and continues to work towards accomplishing these goals. He has been able to gain an understanding of how his stress response functions anatomically and ways potential triggers my increase client anxiety. He has done well to identify triggers and past behaviors leading to anxiety or irritability symptoms, however appears to experience difficulty in identifying these in the moment of distress. Since beginning IOP, CLient has improved his ability to identify strategies for managing anxiety, irritability, and stress and often indicated using positive self-talk at these times. Team Recommendations:: Client continues to be progressing well, however would benefit from a additional week of IOP tx to further promote consistent use of skills learned and review and identify additional strategies for managing emotion escalation. Plan to discharge next week and client to follow-up with outpatient providers. Problem #2 Problem Name:: Client will reduce depression, feelings of hopelessness, and SI Status of Goals:: Client is on-track to complete goals with expected discharge next week. He has continued to deny SI, plan, or intent since admission and is aware of crisis resources available. Client has created plan for managing and coping with passive SI and strategies for preventing crisis escalation. CLient identifies family as major motivations to live and is able to use healthy means of coping with depressive thoughts. Client reports maintaining sobriety throughout admission. Team Recommendations:: Plan is to discharge next week. Client to follow-up with outpatient providers
== END 2018-02-09 23:59 ==
LOC: BHIOP 09:00
PROVIDERS: Visit Provider Psychiatry & Neurology Psychiatry
DX: F33.2 Major depressive disorder, recurrent severe without psychotic features (principal); F43.10 Post-traumatic stress disorder, unspecified; F10.20 Alcohol dependence, uncomplicated; F14.20 Cocaine dependence, uncomplicated; F17.210 Nicotine dependence, cigarettes, uncomplicated; Z91.5 Personal history of self-harm; Z79.899 Other long term (current) drug therapy
CPT/HCPCS: 99204; H0035; H2012; H2020; T1002; 90832; 90834

== ENCOUNTER 2018-02-10 09:00 | Outpatient (RCR) | payer MEDICAID, SELFPAY ==
[2018-02-10 01:05] VITALS: BP 124/71; PULSE 104; RESP 16; TEMP 36.5
--- NOTE | 2018-02-10 12:41 | PCM.PN.BLA ---
Progress Note Patient is seen in follow-up for major depressive disorder, PTSD, remote history substance use. History is been obtained per interview with patient, discussion with staff, review of chart. Case discussed with treatment team. Chief complaint-depression and anxiety Interim history Mood improved over the past 3 weeks. Mild depressive symptoms persist intermittently with periods of euthymia. Decreased ruminative anxiety over the past 2 weeks associated with resolution of legal charges. Moderate anxiety persists but of decreased intensity. Currently using alcohol monitor. Enjoyed weekend at [facility] for . Enjoyed time with grandchildren ages 5 and 8. Ruminative anxiety regarding finances. Looking forward to returning to work full-time. No suicidal or homicidal ideation. No symptoms consistent with psychosis. Looking forward to father visiting next week. Planning and camping with father at [place]. Sleeping from 11 PM to 6:30 AM. Appetite good. Denies nausea vomiting or diarrhea. Weight 210 pounds. Height 5 foot 7 inches. Smoking 1 pack cigarettes daily. Denies ingestion of alcohol or use of illicit drugs. Reports using alcohol monitoring multiple times daily. Mental status exam Alert and oriented . No acute distress. Ambulatory with normal gait and station. Appears stated age. Casually dressed and groomed. Appropriate hygiene. Cooperative with interview. Good eye contact. No psychomotor agitation or retardation. Mood improved. Affect congruent. Speech is clear and with regular rate and rhythm. Language fluent. Thought process organized. Associations logical. Thought content forward thinking. No suicidal or homicidal ideation related or detected.. No symptoms consistent with psychosis noted or detected. Immediate recent and remote memory grossly intact. Attention and concentration are fair. Estimated intelligence and fund of knowledge average. Judgment and insight improved. Diagnosis Major depressive disorder recurrent severe F 33.2 PTSD Amphetamine use disorder-remission Cocaine use disorder in remission Plan Continue IOP as the structured setting is necessary to maintain gains and prevent decompensation. Focus of ongoing treatment on continued coping skills and relapse prevention. Keep counseling center intake appointment February 22. Continue counseling at [facility]. Encourage smoking cessation. Risks benefits alternatives of medications discussed with patient. Patient acknowledges understanding. Continue Prozac 20 mg daily, BuSpar 15 mg 3 times daily, doxepin 100 mg nightly. Patient uses Klonopin rarely. He has used it only once within the past 2 weeks. Encouraged limiting Klonopin use with goal of abstinence. 25 minutes Insight oriented psychotherapy provided. Patient acknowledges understanding and is in agreement with plan. Feels able to maintain safety. Agrees to seek help or emergency care if feeling unsafe to self or others.
--- NOTE | 2018-02-10 13:58 | BH.SGPN ---
Service Group Progress Note - Session Psychotherapy Session #2 Date Open:: 02/10/18 - 8 group members Time Started:: 10:10 Time Stopped:: 11:00 Targeted Problem #:: 1 Type of Group:: Illness Management Goal of Group:: To increase understanding of what stress is, identify current life stressors, and connect impact stressors have on mental health. Client Response/Progress/Benefit:: Client responded well to session, providing insight to discussion. Client appeared to connect with the quote, stating, you have to control your thoughts or it gets worse. Client stated stress impacts a person physically, mentally, emotionally, and behaviorally. Client shared when he becomes too stress he lashes out, gets suicidal ideations, and wants to relapse. 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 Client appeared to benefit from increasing awareness of how stress impacts overall mental wellness. Progress noted in client's improved outlook, but continues to struggle with managing anger. Eye Contact:: Good Motor Activity:: Appropriate Appearance:: Neat Speech:: Appropriate Mood:: Euthymic Affect:: Congruent Thoughts:: Linear, Logical, No evidence of hallucinations/delusions noted Staff Interventions:: Therapist facilitated discussion about stress. Therapist facilitated an activity in which group members were asked to identify various stressors they have in their life currently. Therapist instructed group members to indicate if certain stressors were larger than others. Therapist led processing of each members stress jar and helped them connect impact the stress has on their mental health. Psychotherapy Session #3 Date Open:: 02/10/18 - 7 group members Time Started:: 11:10 Time Stopped:: 12:00 Targeted Problem #:: 1 Type of Group:: Functional Skills Development Goal of Group:: To identify what stressors clients have control over and what stressors have no control over. Another goal was to increase repertoire of healthy strategies to help manage stress. Client Response/Progress/Benefit:: Client responded well to session, participating in discussion. Client reported he focuses on stressors in his control as client reports it's a waste of time and energy to focus on stressors out of his control. 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 Client helped the group identify strategies to reduce stress. Client appeared to benefit from identifying ways to reduce stress. Client to continue IOP to promote emotional regulation. Eye Contact:: Good Motor Activity:: Appropriate Appearance:: Neat Speech:: Appropriate Mood:: Euthymic Affect:: Full Thoughts:: Linear, Logical, No evidence of hallucinations/delusions noted Staff Interventions:: Therapist facilitated discussion about control versus no control and helped group members connect the concept to stressors. Therapist led discussion about importance of putting forth more energy on those stressors they can control. Therapist led group activity that provided participants opportunity to utilize stress management strategies in the moment. Therapist facilitated brainstorming of strategies to help manage stress level. Therapist provided support by using active listening and providing feedback.
--- NOTE | 2018-02-10 14:01 | BH.SGPN_ITS ---
Service Group Progress Note - Session Psychotherapy Session #2 Date Open:: 02/10/18 - 8 group members Time Started:: 10:10 Time Stopped:: 11:00 Targeted Problem #:: 1 Type of Group:: Illness Management Goal of Group:: To increase understanding of what stress is, identify current life stressors, and connect impact stressors have on mental health. Client Response/Progress/Benefit:: Client responded well to session, providing insight to discussion. Client appeared to connect with the quote, stating, you have to control your thoughts or it gets worse. Client stated stress impacts a person physically, mentally, emotionally, and behaviorally. Client shared when he becomes too stress he lashes out, gets suicidal ideations, and wants to relapse. 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 Client appeared to benefit from increasing awareness of how stress impacts overall mental wellness. Progress noted in client's improved outlook, but continues to struggle with managing anger. Eye Contact:: Good Motor Activity:: Appropriate Appearance:: Neat Speech:: Appropriate Mood:: Euthymic Affect:: Congruent Thoughts:: Linear, Logical, No evidence of hallucinations/delusions noted Staff Interventions:: Therapist facilitated discussion about stress. Therapist facilitated an activity in which group members were asked to identify various stressors they have in their life currently. Therapist instructed group members to indicate if certain stressors were larger than others. Therapist led processing of each member?s stress jar and helped them connect impact the stress has on their mental health. Psychotherapy Session #3 Date Open:: 02/10/18 - 7 group members Time Started:: 11:10 Time Stopped:: 12:00 Targeted Problem #:: 1 Type of Group:: Functional Skills Development Goal of Group:: To identify what stressors clients have control over and what stressors have no control over. Another goal was to increase repertoire of healthy strategies to help manage stress. Client Response/Progress/Benefit:: Client responded well to session, participating in discussion. Client reported he focuses on stressors in his control as client reports it's a waste of time and energy to focus on stressors out of his control. 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 Client helped the group identify strategies to reduce stress. Client appeared to benefit from identifying ways to reduce stress. Client to continue IOP to promote emotional regulation. Eye Contact:: Good Motor Activity:: Appropriate Appearance:: Neat Speech:: Appropriate Mood:: Euthymic Affect:: Full Thoughts:: Linear, Logical, No evidence of hallucinations/delusions noted Staff Interventions:: Therapist facilitated discussion about control versus no control and helped group members connect the concept to stressors. Therapist led discussion about importance of putting forth more energy on those stressors they can control. Therapist led group activity that provided participants opportunity to utilize stress management strategies in the moment. Therapist facilitated brainstorming of strategies to help manage stress level. Therapist provided support by using active listening and providing feedback.
--- NOTE | 2018-02-15 10:25 | BH.SGPN ---
Service Group Progress Note - Session Psychotherapy Session #1 Date Open:: 02/15/18 Time Started:: 09:10 Time Stopped:: 10:05 Type of Group:: Process - 7 group members Goal of Group:: The goal of today's group was to check-in with client's mood, stressors, and positives, and review homework. Client Response/Progress/Benefit:: Active participant in group discussion. Shared with the group that his week has been pretty good Reports My life is starting to come back together. Shared that this is the first week that he has felt his MH symptoms are stable which has improved his daily functioning. Managing his mood and stressors effectively. Believes that his medications are amazing. Discussed the progress he has made since attempting suicide about 5 weeks ago. Currently spending time with his father this week and feels that relationship is improving. Group praised pt for his efforts which pt benefited from. Progress noted AEB by pt report. Notes week of stable mood. Will continue in IOP to maintain gains and prevent decompensation. Eye Contact:: Good Motor Activity:: Appropriate Appearance:: Casual Speech:: Appropriate Mood:: Euthymic Affect:: Full Thoughts:: Linear, Logical, No evidence of hallucinations/delusions noted Staff Interventions:: Therapist used open-ended questions to elicit information about client's current stressors and mood state. Therapist was supportive by using active listening and reflection
--- NOTE | 2018-02-15 17:09 | BH.SGPN ---
Service Group Progress Note - Session Psychotherapy Session #2 Date Open:: 02/15/18 group members Time Started:: 10:17 Time Stopped:: 11:12 Targeted Problem #:: 1 Type of Group:: Illness Management Goal of Group:: To identify within self what is keeping client trapped from achieving better quality of life. Client Response/Progress/Benefit:: Client responded well to session, participating in discussion. Client connected with the quote sharing bad stuff happens, but how you cope with it makes it worse or better. Client reported PTSD, guilt, and social anxiety can keep a person trapped. Client also stated ones thoughts can keep a person stuck from moving forward as they can feed into negative behaviors and emotions. Client identified negative thoughts keeping him trapped as used to have control over anger but now I dont and Im fat. Client shared his shame and low self-esteem also make client feel trapped. Client appeared to benefit from gaining awareness of the thoughts, behaviors, and negative maintenance cycles keeping client from achieving mental wellness. Progress noted as client reports improved mood, but continues to struggle with self-awareness of anger triggers and warning signs. Eye Contact:: Fair Motor Activity:: Appropriate Appearance:: Casual Speech:: Appropriate Mood:: Irritable Affect:: Constricted Thoughts:: Linear, Logical, No evidence of hallucinations/delusions noted Staff Interventions:: Therapist facilitated discussion about what is keeping clients stuck from moving toward mental wellness. Therapist assisted clients in connecting how thoughts can contribute to keeping clients stuck. Therapist led discussion about barriers clients face from making changes to help one move forward. Therapist provided support by using active listening and giving feedback to others. Psychotherapy Session #3 Date Open:: 02/15/18 group members Time Started:: 11:25 Time Stopped:: 12:15 Targeted Problem #:: 1 Type of Group:: Functional Skills Development Goal of Group:: To identify what client can do to release self from those things that are trapping them to find more peace and quality in everyday life. Behaviors/Verbalizations/Mental Status:: Left group early Client Response/Progress/Benefit:: Client responded well to session, participating in discussion. Client selected Im fat as the negative thought keeping him trapped. Client shared this thought causes negative self-talk, hypersensitivity, and self-blame. Client stated the thought is unrealistic because client shared people have told him he looks healthy. Client reframed his thought to Im healthy and I can still lose weight. Client helped the group identify strategies to reframe and challenge negative thinking patterns. Client appeared to benefit from learning various strategies to challenge negative thinking. Client to continue IOP to prevent decompensation and improve emotional regulation skills for anger. Eye Contact:: Fair Motor Activity:: Appropriate Appearance:: Casual Speech:: Appropriate Mood:: Irritable Affect:: Constricted Thoughts:: Linear, Logical, No evidence of hallucinations/delusions noted Staff Interventions:: Therapist used examples of maintenance cycles to help clients gain awareness of how negative thinking is keeping clients stuck. Therapist facilitated discussion about different strategies for challenging negative thoughts, assisting clients in connecting how the strategies could benefit them. Therapist provided clients with homework to focus on one thing that is keeping them stuck and identify small steps to start moving towards mental wellness.
--- NOTE | 2018-02-17 17:10 | BH.SGPN ---
Service Group Progress Note - Session Psychotherapy Session #2 Date Open:: 02/17/18 - 9 group members Time Started:: 10:30 Time Stopped:: 11:20 Targeted Problem #:: 1 Type of Group:: Illness Management Goal of Group:: The goal of this session was to increase self-awareness of what is holding them back from moving towards mental wellness and discuss importance of taking action in their treatment. Client Response/Progress/Benefit:: Client responded well to session, active participant. Client connected to the quote stating, if have to accept that you need to change. Client shared he has uses radical acceptance throughout his mental health treatment process to help client remember what he can and cannot change. Client identified stressors and symptoms keeping client from moving towards mental wellness such as: anger, negative thinking, self-blame, and low self-esteem. Client reported he wants to gain back control and overcome these stressors to be calmer and have better emotional regulation. Client appeared to benefit from identifying stressors he would like to take back control of. Progress noted as client reports less intensity of mental health symptoms, but continues to struggle with regulating anger. To continue IOP to prevent decompensation. Eye Contact:: Fair Motor Activity:: Appropriate Appearance:: Casual Speech:: Appropriate Mood:: Irritable Affect:: Constricted Thoughts:: Linear, Logical, No evidence of hallucinations/delusions noted Staff Interventions:: Therapist facilitated discussion about what it means to take action in achieving mental health wellness. Therapist led activity in which clients were asked to identify the symptoms and things that they would like to take back control over. Therapist provided support by using active listening.
--- NOTE | 2018-02-17 17:35 | BH.SGPN ---
Service Group Progress Note - Session Psychotherapy Session #1 Date Open:: 02/17/18 Time Started:: 09:04 Time Stopped:: 10:24 Targeted Problem #:: 1 Type of Group:: Process - 8 participants Goal of Group:: The goal of today's group was to check-in with client's mood, stressors, and positives, review homework and introduce topic for the day. Client Response/Progress/Benefit:: Client receptive of session, however appeared somewhat disengaged as he indicated being tired today. Client explained that his dog woke him up several times throughout the night as he kept seeing animals outside and barking at them. Client shared that this made it difficult to fall back asleep and is impacting his mood today. Client additionally noted that his father has been visiting and is staying in client's home which has been stressful. Client dicussed that although he loves spending time with his father, he struggles to remain patient regarding the various demands of having a house guest. Client benefitted from using the process group as an opportunity to find emotional release and laugh about some of his frustrations. He is displaying some progress in ability to identify when becoming frustrated and better regulate his emotions; however, continues to struggle in this area. Recommended continued IOP to maintain stability and continue to work on improving ability to implement health stress management and emotion regulation skills. Eye Contact:: Fair Motor Activity:: Appropriate, Other - fatigued Appearance:: Casual Speech:: Appropriate Mood:: Irritable Affect:: Constricted Thoughts:: Linear, Logical, No evidence of hallucinations/delusions noted Staff Interventions:: Therapist used open-ended questions to elicit information about client's current stressors and mood state. Therapist was supportive by using active listening and reflection.
--- NOTE | 2018-02-21 10:27 | BH.SGPN_ITS ---
Service Group Progress Note - Session Psychotherapy Session #1 Date Open:: 02/15/18 Time Started:: 09:10 Time Stopped:: 10:05 Type of Group:: Process - 7 group members Goal of Group:: The goal of today's group was to check-in with client's mood, stressors, and positives, and review homework. Client Response/Progress/Benefit:: Active participant in group discussion. Shared with the group that his week has been ?pretty good? Reports ?My life is starting to come back together?. Shared that this is the first week that he has felt his MH symptoms are stable which has improved his daily functioning. Managing his mood and stressors effectively. Believes that his medications are ? amazing?. Discussed the progress he has made since attempting suicide about 5 weeks ago. Currently spending time with his father this week and feels that relationship is improving. Group praised pt for his efforts which pt benefited from. Progress noted AEB by pt report. Notes week of stable mood. Will continue in IOP to maintain gains and prevent decompensation. Eye Contact:: Good Motor Activity:: Appropriate Appearance:: Casual Speech:: Appropriate Mood:: Euthymic Affect:: Full Thoughts:: Linear, Logical, No evidence of hallucinations/delusions noted Staff Interventions:: Therapist used open-ended questions to elicit information about client's current stressors and mood state. Therapist was supportive by using active listening and reflection
--- NOTE | 2018-02-21 17:10 | BH.SGPN_ITS ---
Service Group Progress Note - Session Psychotherapy Session #2 Date Open:: 02/15/18 group members Time Started:: 10:17 Time Stopped:: 11:12 Targeted Problem #:: 1 Type of Group:: Illness Management Goal of Group:: To identify within self what is keeping client trapped from achieving better quality of life. Client Response/Progress/Benefit:: Client responded well to session, participating in discussion. Client connected with the quote sharing bad stuff happens, but how you cope with it makes it worse or better. Client reported PTSD, guilt, and social anxiety can keep a person trapped. Client also stated one?s thoughts can keep a person stuck from moving forward as they can feed into negative behaviors and emotions. Client identified negative thoughts keeping him trapped as ?used to have control over anger but now I don?t and I?m fat.? Client shared his shame and low self-esteem also make client feel trapped. Client appeared to benefit from gaining awareness of the thoughts, behaviors, and negative maintenance cycles keeping client from achieving mental wellness. Progress noted as client reports improved mood, but continues to struggle with self-awareness of anger triggers and warning signs. Eye Contact:: Fair Motor Activity:: Appropriate Appearance:: Casual Speech:: Appropriate Mood:: Irritable Affect:: Constricted Thoughts:: Linear, Logical, No evidence of hallucinations/delusions noted Staff Interventions:: Therapist facilitated discussion about what is keeping client?s stuck from moving toward mental wellness. Therapist assisted clients in connecting how thoughts can contribute to keeping clients stuck. Therapist led discussion about barriers clients face from making changes to help one move forward. Therapist provided support by using active listening and giving feedback to others. Psychotherapy Session #3 Date Open:: 02/15/18 group members Time Started:: 11:25 Time Stopped:: 12:15 Targeted Problem #:: 1 Type of Group:: Functional Skills Development Goal of Group:: To identify what client can do to release self from those things that are trapping them to find more peace and quality in everyday life. Behaviors/Verbalizations/Mental Status:: Left group early Client Response/Progress/Benefit:: Client responded well to session, participating in discussion. Client selected I?m fat as the negative thought keeping him trapped. Client shared this thought causes negative self-talk, hypersensitivity, and self-blame. Client stated the thought is unrealistic because client shared people have told him he looks healthy. Client reframed his thought to ?I?m healthy and I can still lose weight.? Client helped the group identify strategies to reframe and challenge negative thinking patterns. Client appeared to benefit from learning various strategies to challenge negative thinking. Client to continue IOP to prevent decompensation and improve emotional regulation skills for anger. Eye Contact:: Fair Motor Activity:: Appropriate Appearance:: Casual Speech:: Appropriate Mood:: Irritable Affect:: Constricted Thoughts:: Linear, Logical, No evidence of hallucinations/delusions noted Staff Interventions:: Therapist used examples of maintenance cycles to help clients gain awareness of how negative thinking is keeping clients stuck. Therapist facilitated discussion about different strategies for challenging negative thoughts, assisting clients in connecting how the strategies could benefit them. Therapist provided clients with homework to focus on one thing that is keeping them stuck and identify small steps to start moving towards mental wellness.
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
--- NOTE | 2018-02-28 14:50 | BH.DS_ITS ---
Discharge Summary - Demographics Date of Admission:: 01/11/18 Discharge Date: 02/24/18 Presenting Problems at Admission:: Client is a 47-year-old male referred to [facility] program as a step-down post recent inpatient hospitalization at [facility] from January 05 - January 10. Client was hospitalized for depression status post suicide attempt via hanging interrupted by girlfriend proceeded by cutting wrist, interrupted by self. Patient reports that last Tuesday he drank alcohol and then attempted to hang himself. He was rescued by his girlfriend after which he ran out of the house and into the [place] and cut himself with a knife. Per CLient report, this is his second suicide attempt since September. CLient indicates he cut his wrist in October however did not receive treatment. At time of admission Client endorses a depressed mood with low levels of energy, hopelessness, and difficulty concentrating. Additionally reports increased anxiety and hypervigilance, occasionally leading to panic or causing CLient to lash out verbally in anger. At time of admission CLient indicates chronic suicidal thoughts over the past year since being released from nursing home. Client denies active suicide plan or intent and is remorseful for his recent attempt. He indicated wanting to increase anxiety management and distress tolerance skills while in treatment program. Discharge Diagnoses:: Major depressive disorder recurrent severe. PTSD. Amphetamine use disorder. Cocaine use disorder Reason for Discharge:: Client has successfully met treatment goals and no longer meets requirements for [facility] level of care. Client displayed significant decrease in symptoms of depression and anxiety as evidenced by a score of 4/20 on the depression portion of the DSM Cross-Cutting Symptom Measure and a 2/20 on the anxiety portion. Client is planning to follow-up with on-going outpatient individual counseling services and medication [facility]. - Treatment Progress During Treatment & Response: Client was able to make some progress in improving overall management of symptoms and motivation to maintain healthy coping skills throughout duration of treatment. While in the IOP program, CLient indicated observing a decrease in depressive symptoms as well as an increase in ability to manage emotions during times of increased stress or frustration. Client indicated that keeping in mind his grandchildren and desire to set a good example has been helpful in maintaining motivation to continue to work on his mental health and prevent returning to unhealthy or self- destructive behaviors. Client noted that keeping things in perspective and practicing components of the radical acceptance treatment intervention has been helpful in challenging his negative thoughts. Client additionally identified taking a few seconds to calm down before reacting has helped him to think of the consequences of acting on anger impulse and is beginning to see small improvements. He has discussed several occasions in which he refrained from lashing out at inappropriate times, though disclosed he continues to experience ongoing difficulties in refraining from verbal retaliatory behaviors. While in IOP program, Client reports successfully maintaining sobriety and attended NA Support groups on several occasions. Despite consistent attendance in IOP program, Client struggled with remaining on topic and focused throughout the duration of group sessions and often became a distraction for himself and others in the group. When on topic Client provided good insight and helpful suggestions to fellow participants. Near the end of the IOP program, Client began to disengage and often appeared distracted by his phone or client own thoughts. Overall, Client appeared to respond well to treatment as evidenced by reduction in mental health symptoms and improved use of healthy skills learned. Issues Still to be Addressed:: Client continues to display difficulties with mood regulation, specifically irritability during times of increased stress. He would benefit from continued distress tolerance skill building and accessing supports as a means of emotional support. CLient also would benefit from continued work on regular implementation of thought challenging as he often struggles with distorted thinking patterns via dichotomous thinking, minimization, personalization, and disqualifying the positive. He would benefit from continued individual counseling services focusing on maintaining healthy decision making, increasing consistency of healthy coping skills and thought challenging in daily life. Discharge Recommendations/Instructions:: Client is planning to follow-up with on -going outpatient individual counseling services and medication management [facility]. He is also encouraged to reach out to his sponsor and begin attending AA/NA support groups on a more frequent basis in order to continue to promote and maintain sobriety. Discharge Handout: Complete Discharge Handout with client on aftercare options and continuity of care.
== END 2018-03-11 23:59 ==
LOC: BHIOP 09:00
PROVIDERS: Visit Provider Psychiatry & Neurology Psychiatry
DX: F33.2 Major depressive disorder, recurrent severe without psychotic features (principal); F43.10 Post-traumatic stress disorder, unspecified; F10.20 Alcohol dependence, uncomplicated; F14.20 Cocaine dependence, uncomplicated; Z79.899 Other long term (current) drug therapy; F17.210 Nicotine dependence, cigarettes, uncomplicated; Z91.5 Personal history of self-harm
CPT/HCPCS: 90833; 99214; H0035; H2012; H2020; 90832

== ENCOUNTER 2020-09-01 08:58 | Emergency (ER) | payer MEDICAID, SELFPAY ==
[2020-09-01 08:59] VITALS: BP 148/122; PULSE 79; RESP 12; TEMP 36.8; O2SAT 100; BMI 30.4
--- NOTE | 2020-09-01 09:10 | RAD_ITS ---
STUDY: X-RAY CHEST REASON FOR EXAM: Male, 50 years old. Chest pain since last night TECHNIQUE: Single AP portable view of the chest. COMPARISON: None. FINDINGS: EKG electrodes are seen. The lungs are clear and expanded. There is no demonstrated pleural abnormality. Normal size heart. Normal mediastinum and savannah. Normal visualized pulmonary arteries. Normal visualized aortic arch and descending thoracic aorta. Normal visualized thoracic spine. Normal visualized ribs, clavicles, and shoulders. There is no demonstrated abnormality of the visualized soft tissue structures of the upper abdomen. RAD/Chest 1 View (Portable) IMPRESSION: Normal x-ray examination of the chest. Electronically Signed: Logan Limon, at 9:53 EST , Service support ,
--- NOTE | 2020-09-01 09:10 | EKG12_ITS ---
Test Reason : CP Blood Pressure : / mmHG Vent. Rate : 065 BPM Atrial Rate : 065 BPM P-R Int : 134 ms QRS Dur : 094 ms QT Int : 398 ms P-R-T Axes : 049 041 051 degrees QTc Int : 413 ms Normal sinus rhythm Low voltage QRS (Limb Leads) Incomplete right bundle branch block Nonspecific T wave abnormality Confirmed by NELL MOSLEY, QUEENIE ([id number]), editor publications CECILIA CARRINGTON ([id number]) on 09/03/2020 10:43:51 AM Referred By: DANIELITO Confirmed By:QUEENIE CAMEJO MD
--- NOTE | 2020-09-01 09:11 | ED.DCSUM_ITS ---
History of Present Illness Chief Complaint: Chest Pain Informant: Patient Onset: Yesterday - around 1700 Activity at onset: Rest Timing: Continuous Quality: Heaviness Location: Substernal - and into mid-upper back, some in LUE Current Severity: Severe Maximum Severity: Severe Worsened By: - - lying supine. Not Worsened By: Exertion, Movement of Arm, Movement of Torso, Breathing Relieved By: - - a little by sitting up Associated Symptoms: Acid Reflux. Negative for: Nausea, Vomiting, Diaphoresis, Dyspnea, Cough, Fever, Lightheadedness, Palpitations Narrative: Patient states he regrettably relapsed on methamphetamine 3 days ago, smoking i t. He did not have any significant symptoms or problems coming down from his high. He states yesterday he had reflux much of the day. He took Tums and relieved it several times. Later in the evening, he developed the symptoms he presents with now, which include chest discomfort into his upper back and left upper extremity. Subsequently as a result of this, he did not take any medications but became very anxious and is worried that he is having a heart attack since his mom at 42 of a massive heart attack and he is older than that. He is a smoker who now vapes. He denies any other illicit substance use including cocaine. CVD Risk Factors: Family History 1' </=55, Smoking. Negative for: Hypertension, Diabetes, Hypercholesterolemia - Past Medical History (1) Bipolar 1 disorder Status: Chronic Past Medical History - Allergies and Home Meds Allergies/Adverse Reactions: Allergies erythromycin base Allergy (Verified 09/01/20 09:02) Unknown Penicillins [PCN] Allergy (Verified 09/01/20 09:02) Unknown Primary Care Physician: Kacie March [NON-STAFF] - 5-7 Days Lives: Spouse/ Significant Other Smoking Status: Former smoker Drugs: - - methamphetamine Review of Systems General: Denies: Chills, Fever, Sweats Eyes: Denies: Visual changes - bilaterally, Diplopia ENT: Denies: Bilateral ear pain, Rhinorrhea, Sore throat Cardiovascular: Reports: Chest pain. Denies: Palpitations, Heart racing Respiratory: Denies: Dyspnea, Cough, Dyspnea on exertion Gastrointestinal: Denies: Abdominal pain, Nausea, Vomiting, Diarrhea, Melena, Hematochezia Genitourinary: Denies: Dysuria, Hematuria, Frequency Musculoskeletal: Reports: Back pain. Denies: Swelling, Extremity Pain Skin: Denies: Rash, Wounds Neurological: Denies: Headache, Weakness, Numbness Psych: Reports: Anxiety. Denies: Suicidal thoughts Physical Exam Vital Signs/Narrative: Vital Signs Temp Pulse Resp BP Pulse Ox 09/01/20 08:59 98.2 F 79 12 148/122 H 100 Inital Vital Signs reviewed: Yes General: Well nourished, Well developed, No Acute Distress Head: Normocephalic, Atraumatic Eyes: Perrl, EOMI ENT: Moist mucous membranes, No rhinorrhea Neck: Supple, Nontender, No JVD Cardiovascular: Regular rate, Regular rhythm, No murmurs, Normal S1, Normal S2. Negative for: Tachycardia Respiratory: No distress, CTA bilaterally, Chest nontender Abdomen: Soft, Nontender, Nondistended, Normal bowel sounds Back: Nontender, Normal Inspection Extremities: Nontender, No edema. Negative for: Calf Tenderness Skin: Normal color, No rash Neurological: Alert, Oriented x3, Cranial nerves II-XII grossly intact, Normal Strength, Normal Sensation Psychological: Normal Mood, - - anxious but able to calm himself down Diagnostic/Tx/Re-eval Chest X-Ray - ED: 1 View, Read by ED Physician, Normal, Heart, Lungs, Mediastinum, Bony Structures, No Acute Disease Laboratory Tests 09/01/20 09/01/20 Range/Units 09:00 09:00 WBC 9.2 (4.4-11.0) K/mm3 RBC 5.12 (4.6-6.2) M/mm3 Hgb 15.8 (13.0-16.5) g/dL Hct 46.3 (40-54) % MCV 90.4 (80-94) fL MCH 30.9 (27.0-32.0) pg MCHC 34.1 (32-36) g/dL RDW Std Deviation 40.3 (35.1-43.9) fl RDW Coeff of Yulia 12.2 (11.6-14.6) % Plt Count 236 (150-450) K/mm3 MPV 10.5 (6.2-12.0) fl Immature Gran % (Auto) 0.500 (0.0-0.9) % Neut % (Auto) 66.8 (47-70) % Lymph % (Auto) 20.1 (19-41) % Wilcox % (Auto) 9.2 (0-10) % Eos % (Auto) 2.5 (0-5) % Baso % (Auto) 0.9 (0-1) % Absolute Neuts (auto) 6.2 (2.0-7.7) X10^3/uL Absolute Lymphs (auto) 1.85 (0.83-4.51) X10^3/uL Nucleated RBC % 0 (0-5) % Sodium 137 (136-145) mmol/L Potassium 3.9 (3.5-5.1) mmol/L Chloride 102 (98-107) mmol/L Carbon Dioxide 29.0 (21.0-32.0) mmol/L Anion Gap 6 (5-15) BUN 13 (7-18) mg/dL Creatinine 1.14 (0.70-1.30) mg/dL Estim Creat Clear Calc 76.67 ml/min Est GFR (MDRD) Af Amer 88 (>60) mL/min Est GFR (MDRD) Non-Af 73 (>60) mL/min BUN/Creatinine Ratio 11.4 (10-20) RATIO Glucose 106 (74-106) mg/dL Calcium 9.3 (8.5-10.1) mg/dL Troponin I < 0.015 (<0.045) ng/mL - Rhythm Strip Rhythm Strip: Sinus Rhythm Rate: 65 Ectopy: None - EKG Initial EKG Interpretation: Sinus Rhythm, No Acute Injury Pattern Prior: Unchanged HUDSON Risk: No Positive HUDSON Elements Score: 0 - Medical Decision Making Work-up is negative unremarkable, patient was initially treated with a GI cocktail and Bentyl considering GI possibilities, in addition to nausea and Ativan because he developed nausea and was feeling more anxious and wanted something for it. After all of this, his chest heaviness let up significantly and he said was only mild now, he was feeling more comfortable and less anxious. Still felt a little nauseated so I gave him an alcohol pad to sniff. He said this helped. At this time I feel he is safe to be discharged home and follow-up as an outpatient, I do not think this patient has acute coronary syndrome given his continuous discomfort with a normal EKG and troponin, and therefore also unlikely has myocarditis, I do not think he has pericarditis or PE or pleurisy given that he describes discomfort is more visceral and not parietal. GI etiologies are still in the differential diagnosis and not able to be proven or disprove here in the emergency department at this time. He understands will follow-up for persistent symptoms. ED Disposition - Plan for ED Patient: Disposition: Home or Assisted Living Diagnosis: Chest pain, unspecified Instructions: ED Chest Pain, Noncardiac Referrals: Kacie March [NON-STAFF] - 5-7 Days
[2020-09-01 09:24] LABS: Absolute Lymphocyte Count 1.85 X10^3/uL (0.83-4.51); Absolute Neutrophil Count 6.2 X10^3/uL (2.0-7.7); Basophil# 0.08 X10^3/uL; Basophil% 0.9 % (0-1); Eosinophil# 0.23 X10^3/uL; Eosinophils% 2.5 % (0-5); Hematocrit 46.3 % (40-54); Hemoglobin 15.8 g/dL (13.0-16.5); Lymphocyte # 1.85 X10^3/ul (4.0); Lymphocyte % 20.1 % (19-41); Mean Corp Hgb Conc 34.1 g/dL (32-36); Mean Corpuscular Hgb 30.9 pg (27.0-32.0); Mean Corpuscular Volume 90.4 fL (80-94); Mean Platelet Vol. 10.5 fl (6.2-12.0); Monocyte# 0.85 X10^3/uL; Monocyte% 9.2 % (0-10); NRBC Flagged by Analyzer 0 % (0-5); Neutrophil # 6.15 X10^3/uL (2.7-7.7); Neutrophil % 66.8 % (47-70); Platelet Count 236 K/mm3 (150-450); RBC Distribution Width CV 12.2 % (11.6-14.6); RBC Distribution Width SD 40.3 fl (35.1-43.9); Red Blood Count 5.12 M/mm3 (4.6-6.2); White Blood Count 9.2 K/mm3 (4.4-11.0)
[2020-09-01 09:28] VITALS: O2SAT 97
[2020-09-01] MEDS: Dicyclomine 10 MG Capsule 20 MG PO (09:29)
[2020-09-01] MEDS: Mag Hydrox/Al Hydrox/Simeth 30 ML UDC PO (09:29)
[2020-09-01 09:38] LABS: Anion Gap 6 (5-15); BUN 13 mg/dL (7-18); BUN/Creat Ratio 11.4 RATIO (10-20); Calcium,Total 9.3 mg/dL (8.5-10.1); Chloride 102 mmol/L (98-107); Creatinine, Serum 1.14 mg/dL (0.70-1.30); EST Glomerular Filtration Rate 73 mL/min (>60); Est Glom Filt Rate - Afr Amer 88 mL/min (>60); Estimated Creatinine Clearance 76.67 ml/min; Glucose 106 mg/dL (74-106); Potassium 3.9 mmol/L (3.5-5.1); Sodium Level 137 mmol/L (136-145)
[2020-09-01 10:02] VITALS: BP 127/83; PULSE 65; RESP 13; O2SAT 96
--- NOTE | 2020-09-01 10:05 | ED.RN ---
PT REPORTS CONTINUING TO FEEL NAUSEATED AFTER MEDS. DR NOTIFIED, NEW ORDERS RECEIVED.
[2020-09-01] MEDS: LORazepam 1 MG Tablet PO (10:15)
[2020-09-01] MEDS: Ondansetron 4 MG/2 ML Vial IV (10:15)
[2020-09-01 10:56] VITALS: BP 122/76; PULSE 79; RESP 15; O2SAT 97
== END 2020-09-01 10:59 | disposition home or self-care (01) ==
LOC: ED 09:55
PROVIDERS: Emergency Provider Emergency Medicine; PCP Family Medicine
DX: R07.9 Chest pain, unspecified (principal); F17.290 Nicotine dependence, other tobacco product, uncomplicated; F31.9 Bipolar disorder, unspecified; Z79.899 Other long term (current) drug therapy
CPT/HCPCS: 71045; 80048; 84484; 85025; 93005; 96374; 99285; A4216; J2405